=== PATIENT | female | born 1980 | race Two or more races ===

== ENCOUNTER 2024-11-26 15:20 | Emergency (ER) | payer MEDICAID, SELFPAY ==
[2024-11-26 15:20] VITALS: BMI 26.7
[2024-11-26 15:36] VITALS: BP 103/67; PULSE 106; RESP 16; TEMP 36.6; O2SAT 97
--- NOTE | 2024-11-26 16:11 | PD.EDRME ---
Rapid Medical Screening Exam RME Arrival date/time: 11/26/24 15:20 44-year-old female sent over by her PCP for a blood transfusion evaluation. I have greeted and performed a focused initial assessment of this patient. Initial appropriate labs ordered at this time. A comprehensive ED assessment and evaluation of the patient and analysis of all test and completion of medical decision making process will be conducted by additional ED provider. Chief Complaint: General Adult/Misc Complain Time Seen by Provider: 11/26/24 15:47 Vital signs: Vital Signs Temperature 97.9 F 11/26/24 15:36 Pulse Rate 106 H 11/26/24 15:36 Respiratory Rate 16 11/26/24 15:36 Blood Pressure 103/67 11/26/24 15:36 Pulse Oximetry (%) 97 11/26/24 15:36 Oxygen Delivery Method Room Air 11/26/24 15:36
[2024-11-26 17:30] LABS: Basophils # (Auto) 0.1 Thou/mm3 (0.0-0.2); Basophils % (Auto) 1 % (0-2.5); Eosinophils # (Auto) 0.1 Thou/mm3 (0.0-0.5); Eosinophils % (Auto) 1 % (0-10); Immature Granulocytes % (Auto) 1 % (0-0); Immature Granulocytes Auto 0.05 Thou/mm3 (0.00-0.00); Lymphocytes # (Auto) 1.5 Thou/mm3 (1.0-4.8); Lymphocytes % (Auto) 24 % (10-50); Mean Corpuscular HGB Conc 29.3 g/dl (31.0-37.0); Mean Corpuscular Hemoglobin 21.6 pg (25.0-35.0); Mean Corpuscular Volume 74 fL (80-100); Monocytes # (Auto) 0.4 Thou/mm3 (0.0-0.8); Monocytes % (Auto) 7 % (0-12); Neutrophils # (Auto) 4.1 Thou/mm3 (1.8-7.7); Neutrophils % (Auto) 66 % (37-80); Nucleated Red Blood Cell % 0 /100 WBC (0); Platelet Count 487 Thou/mm3 (140-440); White Blood Count 6.3 Thou/mm3 (3.6-11.0)
[2024-11-26 17:36] LABS: Hemoglobin 8.2 g/dL (12.0-16.0)
[2024-11-26 17:51] LABS: INR 0.9 (0.9-1.3); Prothrombin Time 10.2 Seconds (9.0-12.2)
[2024-11-26 17:52] LABS: Alanine Aminotransferase 14 U/L (10-49); Albumin, Serum 3.8 gm/dL (3.5-5.0); Alkaline Phosphatase 171 U/L (46-116); Anion Gap 5 (7-16); BUN/Creatinine Ratio 15 Ratio (12-20); Bilirubin,Total 0.3 mg/dL (0.3-1.2); Blood Urea Nitrogen 18 mg/dL (9-23); Calcium 8.6 mg/dL (8.3-10.6); Calcium (Corrected) 8.8 mg/dL (8.5-10.1); Carbon Dioxide 28.1 mMol/L (20.0-31.0); Chloride 92 mMol/L (98-107); Creatinine (Component) 1.2 mg/dL (0.6-1.3); Estimated Creatinine Clearance 58.9 mL/min (>60); Globulin 3.8 gm/dL (2.3-3.5); Lipase 65 U/L (12-53); Osmolality,Calculated 291 (275-295); Potassium 4.5 mMol/L (3.4-5.1); Sodium 125 mMol/L (136-145); Total Protein 7.6 gm/dL (5.7-8.2); eGFR 58 See Note
[2024-11-26 17:57] LABS: Glucose 778 mg/dL (74-106)
[2024-11-26 17:59] LABS: Aspartate Amino Transferase < 8 U/L (0-34)
[2024-11-26 19:31] VITALS: BP 139/85; PULSE 103; RESP 12; O2SAT 96
--- NOTE | 2024-11-26 19:35 | EDNOTE_ITS ---
ED General RME/HPI General Chief complaint: General Adult/Misc Complain Stated complaint: SENT BY PCP LOW HGB Time Seen by Provider: 11/26/24 15:47 Arrival date/time: 11/26/24 15:20 RME / HPI RME / HPI narrative: 44-year-old female patient was sent over by her PCP for possible transfusion. Patient had blood drawn done 2 days ago and was noted to have a hemoglobin of 6.2. Currently patient is complaining of easy fatigability, no dyspnea on exertion, no dizziness. Patient is currently seen by senior analysis specialist from [place]. Patient is diabetic. She told me that she was eating in the triage earlier today. Denies any vomiting denies any nausea denies any other complaints. Related Data Home Medications ?Medication ?Instructions ?Recorded ?Confirmed metformin 1,000 mg tablet 1,000 mg PO BIDAC 10/19/21 08/18/23 ergocalciferol (vitamin D2) 1,250 50,000 unit PO QWEEK 08/01/23 08/18/23 mcg (50,000 unit) capsule ferrous sulfate 325 mg (65 mg 325 mg PO QDAY 08/01/23 08/18/23 iron) tablet (FeroSul) levonorgestrel-ethinyl estradiol 1 tab PO QDAY 08/01/23 08/18/23 0.1 mg-20 mcg tablet simvastatin 10 mg tablet 10 mg PO DAILY 08/01/23 08/18/23 glipizide 5 mg tablet 5 mg PO QDAY 08/18/23 08/18/23 Previous Rx's ?Medication ?Instructions ?Recorded blood sugar diagnostic (Accu-Chek #100 ea 10/30/21 Juhi Plus test strips) lancets (Coaguchek Lancets) #100 ea 10/30/21 Allergies Allergy/AdvReac Type Severity Reaction Status Date / Time No Known Allergies Allergy Verified 08/26/23 15:31 Review of Systems Review of Systems Narrative Review of Systems: Review of system reviewed and within normal limits except mentioned in HPI ED Exam Narrative Physical exam: VITAL SIGNS: Reviewed. GENERAL APPEARANCE: Alert and interactive, follows commands, no acute distress, HEAD AND FACE: Non-traumatic. ENT: PERRL, pale conjunctiva, eyelid no trauma, Mucous membrane moist. NECK: Supple, nontender, no nuchal rigidity. CHEST: No tenderness, no crepitus, no paradoxical movement, no retractions. LUNGS: Clear, well ventilated, symmetric, no rales, no wheezing, no ronchi, no stridor, good breath sounds bilaterally. HEART: Regular rate, regular rhythm, no murmur, no gallops. ABDOMEN: Soft, positive bowel sounds, nondistended, no guarding, nontender, no rebound, no masses, RECTAL: Deferred. GENITAL: Deferred. NEUROLOGICAL: Gross motor function intact sensory function intact, Appropriate for age. MUSCULOSKELETAL: low back nontender, full range of motion. EXTREMITIES: Nontender, full range of motion. SKIN: Color pale, dry, no rash, no lacerations, no abrasions, no contusions. LYMPHATICS: Deferred. Course Quality Measures none Orders Category Date Time Status Insert IV NOW Care 11/26/24 16:11 Active NPO STAT Care 11/26/24 16:11 Active Occult Blood,Stool (Nursing) NOW Care 11/26/24 16:11 Active CBC Stat Lab 11/26/24 16:59 Completed Comprehensive Metabolic Panel Stat Lab 11/26/24 16:59 Completed Lipase Stat Lab 11/26/24 16:59 Completed Prothrombin Time with INR Stat Lab 11/26/24 16:59 Completed Type and Screen Stat Lab 11/26/24 16:59 Completed Insulin Regular Med 11/26/24 19:35 Discontinued 10 unit SC X1 ONE Sodium Chloride 0.9% 1000 ml [Ns] 1,000 ml Med 11/26/24 19:35 Discontinued IV 999 mls/hr Sodium Chloride 0.9% 1000 ml [Ns] 1,000 ml Med 11/26/24 19:35 Discontinued IV 999 mls/hr Sodium Chloride 0.9% 1000 ml [Ns] 1,000 ml Med 11/26/24 21:20 Discontinued IV 999 mls/hr Vital Signs Vital signs: Vital Signs Temperature 97.9 F 11/26/24 15:36 Pulse Rate 106 H 11/26/24 15:36 Respiratory Rate 16 11/26/24 15:36 Blood Pressure 103/67 11/26/24 15:36 Pulse Oximetry (%) 97 11/26/24 15:36 Oxygen Delivery Method Room Air 11/26/24 15:[address] [facility] Patient data External records reviewed:: None Clinical information provided by:: patient Social determinants that could affect healthcare access:: none Patient has the following chronic illnesses:: Diabetes mellitus, chronic anemia How is presenting disease/condition affected by chronic disease/condition?: e xacerbated by Evaluation data The following diagnostics were reviewed and interpreted by me:: lab results Lab and/or radiology exams considered but not ordered:: None Interpretation Summary: Initially patient's blood sugar was noted to be 778, with no sign of diabetic acidosis. Patient's hemoglobin was noted to be 8.2 hematocrit of 28. Patient received total of 3 L IV NS, and insulin 10 units subcu. Repeat blood sugar was noted to be 452. Medications Medications considered but not ordered:: Plan Medication administrations:: Medication Administration History Discontinued Medications Sodium Chloride (Ns) 1,000 mls @ 999 mls/hr IV .Q1H1M ONE Stop: 11/26/24 20:35 Last Infusion: 11/26/24 21:41 Dose: Infused Documented By: Admin: 11/26/24 20:22 Dose: 999 mls/hr Documented By: ANDERSON Sodium Chloride (Ns) 1,000 mls @ 999 mls/hr IV .Q1H1M ONE Stop: 11/26/24 20:35 Last Infusion: 11/26/24 21:41 Dose: Infused Documented By: Admin: 11/26/24 20:28 Dose: 999 mls/hr Documented By: ANDERSON Sodium Chloride (Ns) 1,000 mls @ 999 mls/hr IV .Q1H1M ONE Stop: 11/26/24 22:20 Last Infusion: 11/26/24 22:21 Dose: Infused Documented By: Admin: 11/26/24 21:43 Dose: 999 mls/hr Documented By: SF Insulin Human Regular (Insulin Hum Regular 1 Unit/0.01 Ml (Per Unit)) 10 unit SC X1 ONE Stop: 11/26/24 19:36 Last Admin: 11/26/24 20:21 Dose: 10 unit Documented By: ANDERSON Co-signed By: CVL IV fluids 3 L and regular insulin subcu 10 units Consultations Consultation(s) initiated? (list below): No Diagnosis Differential Diagnosis ED Complaint MDM: Hyperglycemia, anemia, DKA Most likely diagnosis given after review of the tests above:: Hyperglycemia, anemia Admission Indicated Admission indicated?: not indicated Explain why admission is indicated or not indicated:: Stable Admission Request Was there a request for admission?: No Disposition Plan Disposition Plan: Discharge Discharge Attestation Discharge Attestation: The patient was given an opportunity to ask questions and understood the discharge instructions. Discharge instructions specifically effects, indications for sooner follow up or return to the emergency department, and the expected course of current diagnosis. Patient condition: Stable Medical Decision Making MDM Narrative MDM Narrative: 44-year-old female patient was sent over by her PCP for possible transfusion. Patient had blood drawn done 2 days ago and was noted to have a hemoglobin of 6.2. Currently patient is complaining of easy fatigability, no dyspnea on exertion, no dizziness. Patient is currently seen by senior analysis specialist from [place]. Patient is diabetic. She told me that she was eating in the triage earlier today. Denies any vomiting denies any nausea denies any other complaints. Initially patient's blood sugar was noted to be 778, with no sign of diabetic acidosis. Patient's hemoglobin was noted to be 8.2 hematocrit of 28. Patient received total of 3 L IV NS, and insulin 10 units subcu. Repeat blood sugar was noted to be 452. Patient is ready to go home. Differential Diagnosis Differential Diagnosis: Hyperglycemia, anemia, DKA Lab Data 11/26/24 16:59 11/26/24 16:59 Labs: Lab Results 11/26/24 Range/Units 16:59 WBC 6.3 (3.6-11.0) Thou/mm3 RBC 3.80 L (4.00-5.20) Miln/mm3 Hgb 8.2 L (12.0-16.0) g/dL Hct 28.0 L (36.0-46.0) % MCV 74 L (80-100) fL MCH 21.6 L (25.0-35.0) pg MCHC 29.3 L (31.0-37.0) g/dl RDW Std Deviation 41.0 (36.4-46.3) fL Plt Count 487 H (140-440) Thou/mm3 Neut % (Auto) 66 (37-80) % Lymph % (Auto) 24 (10-50) % [place] % (Auto) 7 (0-12) % Eos % (Auto) 1 (0-10) % Baso % (Auto) 1 (0-2.5) % Neut # (Auto) 4.1 (1.8-7.7) Thou/mm3 Lymph # (Auto) 1.5 (1.0-4.8) Thou/mm3 [place] # (Auto) 0.4 (0.0-0.8) Thou/mm3 Eos # (Auto) 0.1 (0.0-0.5) Thou/mm3 Baso # (Auto) 0.1 (0.0-0.2) Thou/mm3 Immature Gran # (Auto) 0.05 H (0.00-0.00) Thou/mm3 Absolute Nucleated RBC 0.00 (0.00-0.00) Thou/mm3 Immature Gran % 1 H (0-0) % Nucleated RBC % 0 (0) /100 WBC PT 10.2 (9.0-12.2) Seconds INR 0.9 (0.9-1.3) Sodium 125 L (136-145) mMol/L Potassium 4.5 (3.4-5.1) mMol/L Chloride 92 L (98-107) mMol/L Carbon Dioxide 28.1 (20.0-31.0) mMol/L Anion Gap 5 L (7-16) BUN 18 (9-23) mg/dL Creatinine 1.2 (0.6-1.3) mg/dL Estim Creat Clear Calc 58.9 L (>60) mL/min eGFR 58 L (60 - ) See Note BUN/Creatinine Ratio 15 (12-20) Ratio Glucose 778 H* (74-106) mg/dL Calculated Osmolality 291 (275-295) Calcium 8.6 (8.3-10.6) mg/dL Corrected Calcium 8.8 (8.5-10.1) mg/dL Total Bilirubin 0.3 (0.3-1.2) mg/dL AST < 8 (0-34) U/L ALT 14 (10-49) U/L Alkaline Phosphatase 171 H (46-116) U/L Total Protein 7.6 (5.7-8.2) gm/dL Albumin 3.8 (3.5-5.0) gm/dL Globulin 3.8 H (2.3-3.5) gm/dL Albumin/Globulin Ratio 1.0 L (1.2-2.2) Lipase 65 H (12-53) U/L Blood Type O Negative Antibody Screen NEGATIVE Blood Bank Wristband ID Yes Discharge Plan Plan Patient Disposition: HOME (Self Care) Disposition Comment: stable Prescriptions/Referrals Prescriptions/Med Rec: No Action metformin 1,000 mg tablet 1,000 mg PO BIDAC Patient Comments: take 1 tablet by mouth twice a day (DME) Accu-Chek Juhi Plus test strp Strip See Rx Instructions .Route Qty: 100 0RF Rx Instructions: As directed (DME) lancets [Coaguchek Lancets] Misc See Rx Instructions .Route Qty: 100 0RF Rx Instructions: As directed levonorgestrel-ethinyl estrad 0.1-20 mg-mcg tablet 1 tab PO QDAY Patient Comments: take 1 tablet by mouth once daily simvastatin 10 mg tablet 10 mg PO DAILY Patient Comments: take 1 tablet by mouth once daily ferrous sulfate [FeroSul] 325 mg (65 mg iron) tablet 325 mg PO QDAY Patient Comments: take 1 tablet by mouth once daily WITH ORANGE JUICE. DO NOT GIVE WITH CAFFEINE ergocalciferol (vitamin D2) 1,250 mcg (50,000 unit) capsule 50,000 unit PO QWEEK Patient Comments: take 1 capsule by mouth every week Rx Instructions: Saturdays glipizide 5 mg tablet 5 mg PO QDAY Patient Comments: take 1 tablet by mouth every morning Referrals: Hillary Su PA-C [Primary Care Provider] - In 1 week Problem List Clinical Impression: Anemia, Hyperglycemia due to type 2 diabetes mellitus Patient/Caregiver Discharge Instructions Discharge Activity: activity as tolerated Education Materials: Anemia Additional Instructions: Thank you for the opportunity for serving you today. You are stable for discharged . You are advised to: Follow-up with your PCP in 1 to 2 days Return to ED for worsening of symptoms Increase oral fluids Take your medication for diabetes, control your carbohydrate and sugar intake Print Language: Frisian Stand Alone Forms: Jade Award Info., Patient Portal Info Letter PA/KATHI Supervising Physician YISSEL/KATHI Supervising Physician: MD Dave
[2024-11-26 19:38] VITALS: BP 139/85; PULSE 108; RESP 18; TEMP 36.7; O2SAT 98
[2024-11-26] MEDS: INSULIN HUM REGULAR 1 UNIT/0.01 ML (PER UNIT) 10 UNIT SC (20:21)
[2024-11-26] MEDS: SODIUM CHLORIDE 0.9% 1000 ML 1,000 ML 999 ML IV ×3 (20:22→21:43)
[2024-11-26 22:35] VITALS: BP 128/68; PULSE 80; RESP 18; TEMP 36.8; O2SAT 98
== END 2024-11-26 22:38 | disposition home or self-care (01) ==
PROVIDERS: Nurse Practitioner Primary Care; Emergency Provider Emergency Medicine; PCP Physician Assistant
DX: E11.65 Type 2 diabetes mellitus with hyperglycemia (principal); D64.9 Anemia, unspecified; Z79.4 Long term (current) use of insulin
CPT/HCPCS: 36415; 80053; 81001; 83690; 84484; 85025; 85610; 86850; 86900; 86901; 96360; 96361; 96372; 99284; J1815; J7030

== ENCOUNTER 2025-02-07 10:02 | Emergency (ER) | payer MEDICAID, SELFPAY ==
[2025-02-07 10:02] VITALS: BMI 25.7
[2025-02-07 10:16] VITALS: BP 104/69; PULSE 100; RESP 18; TEMP 36.6; O2SAT 96; BMI 26.6
--- NOTE | 2025-02-07 10:20 | XR_ITS ---
EXAMINATION: CT abdomen pelvis wo con ORDERING PROVIDER: KATHI Link HISTORY: 44-year-old female with bilateral flank and lower abdominal pain associated with nausea and vomiting x3 days. TECHNIQUE: Without intravenous or oral contrast, CT was used in the volumetric, helical imaging acquisition of the abdomen and pelvis with 2-D and 3-D reformats generated on a separate workstation and submitted for interpretation. Institutional dose reducing protocols were utilized. Evaluation of hollow viscus and solid viscera is limited secondary to lack of intravenous and oral contrast. RADIATION DOSE: DLP 383 mGy-cm COMPARISON: 11/07/2023, CT abdomen pelvis. FINDINGS: LIVER: Unremarkable. BILIARY: Cholecystectomy. 1.0 cm common bile duct, unchanged from prior, which can be seen in postcholecystectomy setting. PANCREAS: Unremarkable. SPLEEN: Unremarkable. ADRENAL GLANDS: Unremarkable. KIDNEYS: Unremarkable. URETERS: Unremarkable. BLADDER: Unremarkable. CT provides limited evaluation of the urinary bladder. HOLLOW VISCUS: Limited evaluation without contrast. Grossly unremarkable. VASCULATURE: Mild aortoiliac calcific atherosclerotic disease. PELVIS: Multiple phleboliths and calcifications associated with the uterus and bilateral ovaries. 1.2 cm fluid density rounded area associated with the right ovary may represent a small dominant follicle or cyst. Probable mild prominence of the right ovary with trace adjacent free fluid LYMPH NODES: Limited without contrast. Intervertebral old development of bilateral inguinal lymphadenopathy measuring up to 1.4 cm in the right. LUNG BASES: Normal. BONES: Normal. ABDOMINAL WALL: Normal. IMPRESSION: 1. Suggestion of mild prominence of the right ovary with possible small amount of adjacent free fluid. This could be from recently ruptured follicle. Query right pelvic pain. Concern for torsion, consider ultrasound. 2. Interval development of bilateral inguinal lymphadenopathy. This could be reactive or related to other systemic disease.
--- NOTE | 2025-02-07 10:21 | PD.EDABDPN ---
ED Abdominal Pain RME/HPI General Chief Complaint: Abdominal Pain Stated complaint: BACK/ABD PAIN FOR 4 DAYS Time seen by provider: 02/07/25 10:05 Arrival date/time: 02/07/25 10:02 44-year-old female with a history of type 2 diabetes, iron deficiency anemia, hyperlipidemia presents to the emergency room with a chief complaint of bilateral lower back pain, diffuse generalized abdominal pain x 4 days. Source: patient Mode of arrival: ambulatory Limitations: no limitations Related Data Home Medications ?Medication ?Instructions ?Recorded ?Confirmed metformin 1,000 mg tablet 1,000 mg PO BIDAC 10/19/21 08/18/23 ergocalciferol (vitamin D2) 1,250 50,000 unit PO QWEEK 08/01/23 08/18/23 mcg (50,000 unit) capsule ferrous sulfate 325 mg (65 mg 325 mg PO QDAY 08/01/23 08/18/23 iron) tablet (FeroSul) levonorgestrel-ethinyl estradiol 1 tab PO QDAY 08/01/23 08/18/23 0.1 mg-20 mcg tablet simvastatin 10 mg tablet 10 mg PO DAILY 08/01/23 08/18/23 glipizide 5 mg tablet 5 mg PO QDAY 08/18/23 08/18/23 Previous Rx's ?Medication ?Instructions ?Recorded blood sugar diagnostic (Accu-Chek #100 ea 10/30/21 Juhi Plus test strips) lancets (Coaguchek Lancets) #100 ea 10/30/21 Allergies Allergy/AdvReac Type Severity Reaction Status Date / Time No Known Allergies Allergy Verified 02/07/25 10:04 Review of Systems Review of Systems Systems Reviewed: All systems reviewed, normal except as documented Constitutional Constitutional: Reports system reviewed and no additional complaints, except as documented, Denies fatigue, Denies fever(s), Denies headache(s) and Denies weakness Eyes Eyes: Reports system reviewed and no additional complaints, except as documented, Denies blurry vision and Denies change in vision ENT Ears, Nose, Mouth, and Throat: Reports system reviewed and no additional complaints, except as documented, Denies otalgia, Denies headache(s), Denies nasal congestion, Denies throat swelling and Denies vertigo Cardiovascular Cardiovascular: Reports system reviewed and no additional complaints, except as documented, Denies chest pain, Denies dyspnea and Denies dyspnea on exertion Respiratory Respiratory: Reports system reviewed and no additional complaints, except as documented, Denies chest congestion, Denies cough, Denies dyspnea, Denies dyspnea on exertion and Denies wheezing Gastrointestinal Gastrointestinal: Reports system reviewed and no additional complaints, except as documented, Reports abdominal pain, Reports cramping, Reports nausea and Reports vomiting Genitourinary Genitourinary: Reports system reviewed and no additional complaints, except as documented Musculoskeletal Musculoskeletal: Reports system reviewed and no additional complaints, except as documented and Denies back pain Integumentary/Breasts Skin/Breast: Reports system reviewed and no additional complaints, except as documented and Denies wounds Neurologic Neurologic: Reports system reviewed and no additional complaints, except as documented, Denies confusion, Denies headache(s), Denies lack of coordination, Denies vertigo and Denies weakness Psychiatric Psychiatric: Reports system reviewed and no additional complaints, except as documented, Denies anxiety, Denies confusion, Denies depression, Denies paranoia, Denies suicidal ideation and Denies tactile hallucinations Endocrine Endocrine: Reports system reviewed and no additional complaints, except as documented and Denies fatigue Hematologic/Lymphatic Hematologic/Lymphatic: Reports system reviewed and no additional complaints, except as documented and Denies lymphadenopathy Allergic/Immunologic Allergic/Immunologic: Reports system reviewed and no additional complaints, except as documented, Denies throat swelling, Denies urticaria and Denies wheezing ED Exam General Limitations: Present no limitations General appearance: Present alert and in no apparent distress Head Head exam: Present atraumatic Eye Eye exam: Present normal appearance, PERRL and EOMI ENT ENT exam: Present normal exam, normal oropharynx and mucous membranes moist Neck Neck exam: Present normal inspection, full ROM and trachea midline Chest Chest inspection: Present normal inspection and symmetric chest wall rise Respiratory Respiratory exam: Present normal lung sounds bilaterally Cardiovascular Cardiovascular exam: Present regular rate, normal rhythm and normal heart sounds Abdominal Exam Abdominal exam: Present soft, distention, tenderness and normal bowel sounds; Absent guarding or rebound Abdominal tenderness: Present diffuse and moderate Extremities Exam Extremities exam: Present normal inspection and full ROM Back Exam Back exam: Present normal inspection and full ROM Neurological Exam Neurological exam: Present alert, oriented X3 and CN II-XII intact Psychiatric Psychiatric exam: Present normal affect and normal mood Skin Skin exam: Present warm, dry, intact and normal color Course Quality Measures none Orders Category Date Time Status CT abdomen pelvis wo con Stat Exams 02/07/25 10:20 Completed CBC Stat Lab 02/07/25 10:41 Completed CMP [Comprehensive Metabolic Panel] Stat Lab 02/07/25 10:41 Completed HCG Qualitative,Urine Stat Lab 02/07/25 12:33 Completed Lipase Stat Lab 02/07/25 10:41 Completed UA [Urinalysis] Stat Lab 02/07/25 12:33 Completed Urine Culture Stat Lab 02/07/25 12:33 Received HYDROcodone*/APAP 5/325 [[place] 5/325] Med 02/07/25 10:20 Discontinued 1 tab PO X1 ONE Ondansetron Odt [Zofran Odt] Med 02/07/25 10:20 Discontinued 4 mg PO X1 ONE Vital Signs Vital signs: Vital Signs Temperature 97.9 F 02/07/25 10:16 Pulse Rate 100 02/07/25 10:16 Respiratory Rate 18 02/07/25 10:16 Blood Pressure 104/69 02/07/25 10:16 Pulse Oximetry (%) 96 02/07/25 10:16 Oxygen Delivery Method Room Air 02/07/25 10:16 O2 saturation 96% within normal limits Abdominal Pain MDM MDM Narrative MDM Narrative:: 44-year-old female with a history of type 2 diabetes, iron deficiency anemia, hyperlipidemia presents to the emergency room with a chief complaint of bilateral lower back pain, diffuse generalized abdominal pain x 4 days. Patient is hemodynamically stable and in no apparent distress. Patient is afebrile and O2 is 96% on room air Physical examination shows mild lower abdominal pelvic pain with palpation. Patient has active bowel sounds to all [address] of the abdomen and pelvis was completed and was negative for any acute findings. CBC CMP were negative for any leukocytosis. Urinalysis was negative for any UTI Patient was discharged and educated to follow-up with her primary care provider and return to the emergency room for any evidence of worsening signs or symptoms Patient data External records reviewed:: [facility] previous records Clinical information provided by:: patient Social determinants that could affect healthcare access:: none Patient has the following chronic illnesses:: Hypertension, hyperlipidemia, type 2 diabetes How is presenting disease/condition affected by chronic disease/condition?: uneffected by Evaluation data The following diagnostics were reviewed and interpreted by me:: lab results and radiology exam(s) Lab and/or radiology exams considered but not ordered:: Labs and radiology exams considered and ordered Interpretation Summary: CT abdomen and pelvis-FINDINGS: LIVER: Unremarkable. BILIARY: Cholecystectomy. 1.0 cm common bile duct, unchanged from prior, which can be seen in postcholecystectomy setting. PANCREAS: Unremarkable. SPLEEN: Unremarkable. ADRENAL GLANDS: Unremarkable. KIDNEYS: Unremarkable. URETERS: Unremarkable. BLADDER: Unremarkable. CT provides limited evaluation of the urinary bladder. HOLLOW VISCUS: Limited evaluation without contrast. Grossly unremarkable. VASCULATURE: Mild aortoiliac calcific atherosclerotic disease. PELVIS: Multiple phleboliths and calcifications associated with the uterus and bilateral ovaries. 1.2 cm fluid density rounded area associated with the right ovary may represent a small dominant follicle or cyst. Probable mild prominence of the right ovary with trace adjacent free fluid LYMPH NODES: Limited without contrast. Intervertebral old development of bilateral inguinal lymphadenopathy measuring up to 1.4 cm in the right. LUNG BASES: Normal. BONES: Normal. ABDOMINAL WALL: Normal. IMPRESSION: 1. Suggestion of mild prominence of the right ovary with possible small amount of adjacent free fluid. This could be from recently ruptured follicle. Query right pelvic pain. Concern for torsion, consider ultrasound. 2. Interval development of bilateral inguinal lymphadenopathy. This could be reactive or related to other systemic disease. Medications / Prescriptions Medications or Prescriptions considered but not ordered:: Medication given Medication administrations:: Medication Administration History Discontinued Medications Hydrocodone Bitart/Acetaminophen (Hydrocodone/Apap 5/325 Tablet) 1 tab PO X1 ONE Stop: 02/07/25 10:21 Last Admin: 02/07/25 10:33 Dose: 1 tab Documented By: BD Ondansetron HCl (Ondansetron Odt 4 Mg Tabrap) 4 mg PO X1 ONE; Protocol Stop: 02/07/25 10:21 Last Admin: 02/07/25 10:33 Dose: 4 mg Documented By: BD Medication given Consultations Consultation(s) initiated? (list below): No Diagnosis Differential diagnosis abdominal pain: abdominal pain, acute appendicitis, calculus of kidney, constipation, diverticulitis, gastroenteritis, small bowel obstruction and other (Ovarian cyst) Most likely diagnosis given after review of the tests above:: Ovarian cyst Admission Indicated Admission indicated?: not indicated Admission Request Was there a request for admission?: No Disposition Plan Disposition Plan: Discharge Discharge Attestation Discharge Attestation: The patient and all family members were given an opportunity to ask questions and understood the discharge instructions. Discharge instructions specifically effects, indications for sooner follow up or return to the emergency department, and the expected course of current diagnosis. Patient condition: Stable Discharge Plan Plan Patient Disposition: HOME (Self Care) Disposition Comment: Stable Prescriptions/Referrals Prescriptions/Med Rec: No Action metformin 1,000 mg tablet 1,000 mg PO BIDAC Patient Comments: take 1 tablet by mouth twice a day (DME) Accu-Chek Juhi Plus test strp Strip See Rx Instructions .Route Qty: 100 0RF Rx Instructions: As directed (DME) lancets [Coaguchek Lancets] Misc See Rx Instructions .Route Qty: 100 0RF Rx Instructions: As directed levonorgestrel-ethinyl estrad 0.1-20 mg-mcg tablet 1 tab PO QDAY Patient Comments: take 1 tablet by mouth once daily simvastatin 10 mg tablet 10 mg PO DAILY Patient Comments: take 1 tablet by mouth once daily ferrous sulfate [FeroSul] 325 mg (65 mg iron) tablet 325 mg PO QDAY Patient Comments: take 1 tablet by mouth once daily WITH ORANGE JUICE. DO NOT GIVE WITH CAFFEINE ergocalciferol (vitamin D2) 1,250 mcg (50,000 unit) capsule 50,000 unit PO QWEEK Patient Comments: take 1 capsule by mouth every week Rx Instructions: Saturdays glipizide 5 mg tablet 5 mg PO QDAY Patient Comments: take 1 tablet by mouth every morning Referrals: Hillary Su PA-C [Primary Care Provider] - In 1 week Problem List Clinical Impression: Ovarian cyst Patient/Caregiver Discharge Instructions Education Materials: Understanding Ovarian Cysts, Treatment for Ovarian Cysts, ED Ovarian Cyst Additional Instructions: Please follow-up with your primary care provider in the next [address] of your abdomen and pelvis was negative for any acute findings. For any evidence of worsening signs or symptoms return to the emergency room immediately Print Language: Hungarian Stand Alone Forms: Jade Award Info., Patient Portal Info Letter YISSEL/KATHI Supervising Physician YISSEL/KATHI Supervising Physician: Dr. Gutierrez
[2025-02-07] MEDS: ONDANSETRON ODT 4 MG TABRAP PO (10:33)
[2025-02-07] MEDS: HYDROcodone/APAP 5/325 TABLET 1 TAB PO (10:33)
[2025-02-07 11:04] LABS: Basophils # (Auto) 0.1 Thou/mm3 (0.0-0.2); Basophils % (Auto) 1 % (0-2.5); Eosinophils # (Auto) 0.1 Thou/mm3 (0.0-0.5); Eosinophils % (Auto) 1 % (0-10); Hematocrit 28.8 % (36.0-46.0); Immature Granulocytes % (Auto) 0 % (0-0); Immature Granulocytes Auto 0.03 Thou/mm3 (0.00-0.00); Lymphocytes # (Auto) 1.5 Thou/mm3 (1.0-4.8); Lymphocytes % (Auto) 20 % (10-50); Mean Corpuscular HGB Conc 29.2 g/dl (31.0-37.0); Mean Corpuscular Hemoglobin 21.1 pg (25.0-35.0); Mean Corpuscular Volume 72 fL (80-100); Monocytes # (Auto) 0.4 Thou/mm3 (0.0-0.8); Monocytes % (Auto) 5 % (0-12); Neutrophils # (Auto) 5.3 Thou/mm3 (1.8-7.7); Neutrophils % (Auto) 73 % (37-80); Nucleated Red Blood Cell % 0 /100 WBC (0); Platelet Count 540 Thou/mm3 (140-440); RDW Standard Deviation 41.5 fL (36.4-46.3); Red Blood Count 3.99 Miln/mm3 (4.00-5.20); White Blood Count 7.2 Thou/mm3 (3.6-11.0)
[2025-02-07 11:33] LABS: Alanine Aminotransferase 10 U/L (10-49); Albumin, Serum 3.7 gm/dL (3.5-5.0); Alkaline Phosphatase 123 U/L (46-116); Anion Gap 7 (7-16); Aspartate Amino Transferase 15 U/L (0-34); BUN/Creatinine Ratio 14 Ratio (12-20); Bilirubin,Total 0.3 mg/dL (0.3-1.2); Blood Urea Nitrogen 13 mg/dL (9-23); Calcium 8.6 mg/dL (8.3-10.6); Calcium (Corrected) 8.8 mg/dL (8.5-10.1); Carbon Dioxide 26.7 mMol/L (20.0-31.0); Chloride 102 mMol/L (98-107); Creatinine (Component) 0.9 mg/dL (0.6-1.3); Estimated Creatinine Clearance 78.5 mL/min (>60); Globulin 3.7 gm/dL (2.3-3.5); Glucose 330 mg/dL (74-106); Lipase 39 U/L (12-53); Osmolality,Calculated 285 (275-295); Sodium 136 mMol/L (136-145); Total Protein 7.4 gm/dL (5.7-8.2); eGFR > 60 See Note
[2025-02-07 11:46] LABS: Hemoglobin 8.4 g/dL (12.0-16.0)
--- NOTE | 2025-02-07 12:45 | PC.NURSE ---
CT PENDING HCG URINE SENT
[2025-02-07 12:52] LABS: Collection Type, Urine Clean Catch
[2025-02-07 13:17] LABS: HCG Qualitative,Urine Negative
[2025-02-07 13:21] LABS: Bilirubin,Urine Negative (Negative); Blood,Urine 1+ (Negative); Clarity,Urine Clear (Clear/Hazy); Color,Urine Lt-Yellow (Lt Yel-Yel); Glucose, Urine 4+ (Negative); Ketones,Urine Trace (Negative); Leukocyte Esterase,Urine Negative (Negative); Nitrite,Urine Negative (Negative); Protein,Urine 3+ (Neg - Trace); RBC,Urine 23 /hpf (0-3); Specific Gravity,Urine 1.025 (1.001-1.035); Squamous Epithelial Cell,Urine 3 /hpf (0-5); Urobilinogen,Urine Negative mg/dL (0.0-1.0); WBC,Urine 2 /hpf (0-5)
== END 2025-02-07 14:58 | disposition home or self-care (01) ==
PROVIDERS: Nurse Practitioner Family; Emergency Provider Emergency Medicine; PCP Physician Assistant
DX: N83.201 Unspecified ovarian cyst, right side (principal); R59.0 Localized enlarged lymph nodes; E11.9 Type 2 diabetes mellitus without complications; E78.5 Hyperlipidemia, unspecified; I10 Essential (primary) hypertension; Z90.49 Acquired absence of other specified parts of digestive tract
CPT/HCPCS: 36415; 74176; 80053; 81001; 81025; 83690; 85025; 87086; 99284; Q0162; A9270

== ENCOUNTER → 2025-11-16 | Outpatient (CLI) | payer MEDICAID, SELFPAY ==
--- NOTE | 2025-11-16 10:30 | ECHO_ITS ---
Patient Info Name: Aixa Lala Age: 45 years : 1980 Gender: Female Ht: 163 cm Wt: 75 kg BSA: 1.86 m2 BP: 176 / 99 mmHg HR: 109 bpm Heart Rhythm: Tachycardia Exam Date: 11/16/2025 10:51 AM Admit Date: 11/16/2025 Site: [facility] Room Number: ECHO Patient Status: O Exam Type: CA echo doppler complete Stack Supervisor: Lety Benavides Ordering Physician: Hillary Su Referring Physician: Hillary Su Study Info Indications unk - Primary Location: SDIM Left Ventricular Outflow Tract Name Value Normal LVOT 2D LVOT Diameter 1.9 cm LVOT Doppler LVOT Peak Velocity 168 cm/s LVOT Mean Gradient 5 mmHg LVOT VTI 35 cm LVOT VTI/AV VTI Ratio 1.0 LVOT Stroke Volume 98 ml Pulmonic Valve Name Value Normal PV Doppler PV Peak Velocity 93 cm/s Mitral Valve Name Value Normal MV Doppler MV Decel Williamson 1,042 cm/s2 MV PHT 40 ms MV Area (PHT) 5.5 cm2 4.0-5.0 MV Diastolic Function MV E Peak Velocity 143 cm/s Tricuspid Valve Name Value Normal TV Regurgitation Doppler TR Peak Velocity 261 cm/s Estimated PAP/RSVP RA Pressure 3 mmHg <=5 PA Systolic Pressure 30 mmHg <36 RV Systolic Pressure 30 mmHg <36 Aortic Valve Name Value Normal AV 2D/MM AV Cusp Sep (MM) 1.4 cm AV Doppler AV Peak Velocity 156 cm/s AV Mean Gradient 6 mmHg AV VTI 34 cm AV Area (Cont Eq VTI) 2.9 cm2 >=3.0 AV Area (Cont Eq Allen) 3.1 cm2 AV DI (Allen) 1.08 AV Regurgitation 2D LVOT Area 2.8 cm2 Ventricles Name Value Normal LV Dimensions 2D/MM IVS Diastolic Thickness (2D) 1.0 cm 0.6-0.9 LVID Diastole (2D) 4.5 cm 3.8-5.2 LVIW Diastolic Thickness (2D) 0.9 cm 0.6-0.9 LVID Systole (2D) 2.8 cm 2.2-3.5 LVOT Diameter 1.9 cm LV Mass (2D Cubed) 142.89 g 67.00-162.00 LV Mass Index (2D Cubed) 77 g/m2 43-95 Relative Wall Thickness (2D) 0.40 <=0.42 IVS/LVIW Diastolic Thickness (2D) 1.11 0.00-1.50 LV Fractional Shortening/Ejection Fraction 2D/MM LV Fractional Shortening (2D) 38 % 27-45 LV EF (2D Teichholz) 68 % Atria Name Value Normal LA Dimensions LA Volume (4C A-L) 63 ml LA Volume (BP A-L) 66 ml Left Ventricle Left ventricular chamber dimension is normal. Left ventricular systolic function is normal with visually estimated ejection fraction of 60-65%. There is mild eccentric hypertrophy noted in the left ventricle. Left ventricular segmental wall motion is normal. There is normal diastolic function in the left ventricle. Right Ventricle Right ventricular chamber dimension is normal. Right ventricular systolic function is normal. Left Atrium Left atrial chamber dimension is normal. Right Atrium Right atrial chamber dimension is normal. Aortic Valve The aortic valve is trileaflet. There is no aortic valve sclerosis. There is no aortic valve stenosis with a peak velocity of 156 cm/s, mean gradient of 6 mmHg, and aortic valve area of 2.9 cm2. There is no aortic valve regurgitation. Pulmonic Valve The pulmonic valve is normal. There is no pulmonic valve stenosis. There is no pulmonic regurgitation. Mitral Valve The mitral valve has normal leaflets. There is no mitral valve stenosis. There is no mitral valve regurgitation. Tricuspid Valve The tricuspid valve leaflets are normal. There is no tricuspid valve stenosis. There is trace tricuspid valve regurgitation. No pulmonary hypertension, estimated pulmonary arterial systolic pressure is 30 mmHg and systemic blood pressure of 176 mmHg in systole. Pericardium/Pleural The pericardium appears normal. There is no pericardial effusion. No pleural effusion visualized. Inferior Vena Cava Normal inferior vena cava with >50% collapse upon inspiration consistent with normal right atrial pressure, 3 mmHg. Aorta The aortic measurements are indexed to age and body surface area. The aortic root at the sinus of Valsalva is not well visualized. The prox ascending aorta is not well visualized. Summary 1. Left ventricle size is normal and systolic function is normal. Estimated ejection fraction is 60-65%. There is normal diastolic function. 2. Right ventricle chamber size is normal and systolic function is normal. Estimated RVSP is 30 mmHg. 3. There is trace tricuspid valve regurgitation and trace MR. 4. Normal IVC with estimated RA pressure 3 mmHg. Report Signatures Finalized by Charles Saxena on 11/18/2025 09:13 PM
== END | disposition home or self-care (01) ==
PROVIDERS: PCP Physician Assistant; Referring Provider Physician Assistant; Visit Provider Physician Assistant
DX: I08.1 Rheumatic disorders of both mitral and tricuspid valves (principal)
CPT/HCPCS: 93306